=== PATIENT | male | born 1945 | race Caucasian/White ===

== ENCOUNTER 2017-02-14 13:13 | Outpatient (CLI) | payer OTHER | END 2017-02-14 13:14 | disposition home or self-care (01) | LOC: ULT 13:13 | PROVIDERS: ATTEND Orthopaedic Surgery | DX: I25.9 Chronic ischemic heart disease, unspecified (principal); I08.1 Rheumatic disorders of both mitral and tricuspid valves | CPT/HCPCS: 93306 ==

== ENCOUNTER 2017-04-26 12:14 | Inpatient (IN) | payer OTHER ==
[2017-04-26 12:49] LABS: #Lymphocytes 2.7 thou/uL (1.20-3.40); #Monocytes 0.5 thou/uL (0.11-0.59); %Basophils 0.5 % (0.0-1.0); %Eosinophils 0.3 % (0.0-10.0); %Lymphocytes 36.8 % (21.0-51.0); %Monocytes 7.2 % (0.0-10.0); %Neutrophils 55.2 % (42.0-75.0); Mean Corpuscular HGB CONC 33.3 g/dL (32.0-36.0); Mean Corpuscular Hemoglobin 33.2 pg (27.0-31.0); Mean Corpuscular Volume 99.8 fl (80.0-94.0); Mean Platelet Volume 8.2 fL (7.4-10.4); Platelet Count 142 thou/uL (130-400); RBC Distribution Width 13.5 % (11.5-14.5); White Blood Cell (WBC) Count 7.3 thou/uL (4.8-10.8)
[2017-04-26 13:04] LABS: ALT (SGPT) 160 U/L (8-55); AST (SGOT) 95 U/L (5-34); Albumin 3.8 g/dL (3.4-4.8); Alkaline Phosphatase 256 U/L (40-150); Anion Gap 21 mmol/L (10-20); BUN (Urea Nitrogen) 47 mg/dL (8.4-25.7); Calc. Creatinine Clearance 0 mL/min (70-130); Calcium 11.8 mg/dL (7.8-10.44); Carbon Dioxide 18 mmol/L (23-31); Chloride 101 mmol/L (98-107); Estimated GFR-MDRD 41; Glucose 474 mg/dL (83-110); Potassium 4.6 mmol/L (3.5-5.1); Protein, Total 7.8 g/dL (5.8-8.1); Sodium 135 mmol/L (136-145)
--- NOTE | 2017-04-26 14:10 | RAD ---
CHEST ONE VIEW: History: Cough. Comparison: 09-13-16 FINDINGS: Cardiac silhouette is magnified by projection. There is lobular prominence of the upper mediastinum w ith narrowing of the right side of the mid trachea. Ill-defined mass like infiltrate projects over th e right suprahilar level. There is calcification at the aortic knob. IMPRESSION: Right suprahilar mass with mediastinal adenopathy. Please consider pulmonary evaluation and eventual CT chest for better characterization. POS: [facility]
[2017-04-26 15:09] LABS: PTT 26.5 SEC (22.9-36.1); Prothrombin Time 13.6 SEC (12.0-14.7)
[2017-04-26 15:15] LABS: Bilirubin Negative (Negative); Blood, Urine Negative (Negative); Clarity CLOUDY (Clear); Glucose, Urine (Dipstick) 500 mg/dL (Negative); Leukocyte Small (Negative); Nitrite Positive (Negative); Protein, Urine (Dipstick) 30 mg/dL (Neg-Trace); Specific Gravity, Urine 1.026 (1.002-1.036); pH, Urine 5.5 (5.0-9.0)
[2017-04-26 15:19] LABS: Hyaline Casts/LPF 4-6 HYALINE CAST LPF (0-3 Hyaline); Pathc Cast-AUWi Flag 0.27 (0-2.49); RBC/HPF 0-3 HPF (0-3); Squamous Epithelial 0-3 HPF (0-3)
[2017-04-26 15:20] LABS: Yeast-AUWi Flag 140.1 (0-25.0)
[2017-04-26 15:22] LABS: CK (CPK) 133 U/L (30-200)
[2017-04-26 15:32] LABS: Bacteria/HPF 2+ HPF (None Seen); Yeast-All Forms None Seen HPF (None Seen)
[2017-04-26 15:35] LABS: Lipase 1510 U/L (8-78)
[2017-04-26] MEDS ORDERED: Piperacillin/Tazobactam 4.5 GM in Sodium Chloride 0.9% 100 ML IVPB ONE (16:00)
--- NOTE | 2017-04-26 16:11 | CT ---
CT HEAD NONCONTRAST 04/26/17 HISTORY: Altered mental status. COMPARISON: 09/21/16. FINDINGS: There is no evidence of acute intracranial hemorrhage or infarct. Mild diffuse cortical atrophy and c hronic ischemic changes are stable. There is no mass effect or shift of midline structures. Calcifica tion is present in the arterial structures at the brain base. IMPRESSION: 1. Chronic type findings are stable. No acute intracranial abnormalities are demonstrated on non contrast CT head. 2. Atherosclerosis. POS: [facility]
--- NOTE | 2017-04-26 16:23 | CT ---
CT CHEST WITHOUT CONTRAST: 04/26/17 HISTORY: Possible mass in the chest. COMPARISON: Chest radiograph same day. FINDINGS: Within the right upper lobe infiltrate into the mediastinum and causing a mass effect upon the right trachea is an ill-defined mass which is difficult to fully evaluate without intravenous contrast. It measures approximately 4.3 x 4.5 x 10 cm (trans x AP x CC). Thyroid is unremarkable. There is abnormal solid mass effect attenuation in the right upper lobe. This mass appears to extend to the anterior and posterior segments of the right upper lobe bronchi. There is also abnormal thicke sean of the peribronchial soft tissues of the right middle lobe with some volume loss. Overall the si ze of this mass may be greater than what is measured. This may actually be approximately 10 cm in the craniocaudad dimension. Small right effusion. Mild emphysematous changes. Dense coronary artery calcifications. There is a very heterogeneous appearance to the liver. Old left lateral 8th rib fracture. IMPRESSION: 1. Right upper lobe mass into the mediastinum measuring approximately 4.3 x 4.3 x 10 cm (trans x AP x CC). There is subsequent invasion to the right upper lobe anterior and posterior segmental bron chi as well as right middle lobe bronchus with postobstructive pneumonitis and possibly some lymphang itic spread of tumor. 2. Extensive heterogeneous appearance of the noncontrast enhanced liver for which a contrast enh anced study of the abdomen and pelvis is recommended. Metastatic disease is of concern. 3. The mediastinal mass is most amenable to bronchoscopic evaluation than it is for a percutaneo us biopsy. POS: [facility]
--- NOTE | 2017-04-26 17:11 | ULT ---
RIGHT UPPER QUADRANT SONOGRAM: 04/26/17 HISTORY: Right upper quadrant pain. Abnormal liver function tests. FINDINGS: gallbladder has a normal appearance without evidence of stones. Common duct is 0.3 cm diameter. Liver has a very heterogeneous echotexture, possibly related to multiple small hypoechoic masses. It is di ffusely enlarged. Measurements are unable to be calculated. No free fluid is visible. Small cyst is a ssociated with cortex of the right kidney. IMPRESSION: 1. Enlarged heterogeneous liver with the appearance of multiple small heterogeneous masses. Plea se consider nonemergent CT of the liver for better characterization, with and without IV contrast. 2. No evidence of gallstones or biliary obstruction. POS: [facility]
--- NOTE | 2017-04-26 18:19 | CT ---
CT OF ABDOMEN AND PELVIS PERFORMED WITHOUT CONTRAST ENHANCEMENT: 04/26/17 HISTORY: Altered mental status. Abnormal noted in abdomen on recent chest CT. No IV contrast was administered as the patient is reportedly allergic. Coronary artery calcifications are seen. Bibasilar atelectatic lung changes noted. The liver has a very heterogeneous echotexture which is felt to most likely represent diffuse liver m etastatic disease. The spleen, pancreas and gallbladder regions appear unremarkable. Right and left adrenal gland are normal in appearance. Right and left kidneys are normal in size. Nikolai cifications seen in both kidneys are felt to be combination of some renal calculi as well as vascular calcifications. No obstruction. Small hypodensity involving the upper pole of the right kidney is mo st likely a cyst. There is no significant periaortic or mesenteric lymphadenopathy. The aorta is ecta tic with some mild aneurysmal dilatation of the common iliac arteries. CT OF PELVIS PERFORMED WITH CONTRAST ENHANCEMENT: There is a moderate amount of stool present in the colon. There is minimal sigmoid diverticulosis. IMPRESSION: 1. Very heterogeneous appearance to the liver which is felt to represent diffuse metastatic dise ase. 2. Bibasilar atelectasis with right pleural effusion. POS: [facility]
[2017-04-26] MEDS ORDERED: Ondansetron HCl/PF 4 MG/2 ML Vial ONE (18:35)
[2017-04-26] MEDS ORDERED: Morphine 4 MG/ML VIAL ONE (18:35)
[2017-04-26] MEDS ORDERED: Fentanyl 100 MCG/2 ML VIAL ONE (18:39)
[2017-04-26 19:06] LABS: Lactic Acid 2.1 mmol/L (0.5-2.2)
[2017-04-26] MEDS ORDERED: Ondansetron ODT 4 MG TAB SL PRN (20:22)
[2017-04-26] MEDS ORDERED: Sodium Chloride 0.9% 1,000 ML IV SCH (20:22)
[2017-04-26] MEDS ORDERED: Acetaminophen 325 MG TAB PO PRN (20:22)
[2017-04-26] MEDS ORDERED: Ondansetron HCl/PF 4 MG/2 ML Vial IVP PRN ×2 (20:22→22:46)
[2017-04-26] MEDS ORDERED: Piperacillin/Tazobactam 4.5 GM in Sodium Chloride 0.9% 100 ML IVPB SCH (22:00)
[2017-04-26] MEDS ORDERED: HumaLOG 300 UNITS/3 ML VIAL SC PRN ×2 (22:46)
[2017-04-26] MEDS ORDERED: Acetaminophen 500 MG TAB PO PRN (22:46)
[2017-04-26] MEDS ORDERED: Ondansetron ODT 4 MG TAB PO PRN (22:46)
[2017-04-26] MEDS ORDERED: Dextrose 5% in Water 1,000 ML IV PRN (22:46)
[2017-04-26] MEDS ORDERED: Dextrose 50% Abboject 50 ML SYRINGE SLOW IVP PRN (22:46)
[2017-04-26] MEDS ORDERED: Senokot 8.6 MG TAB PO PRN (22:46)
[2017-04-26] MEDS ORDERED: VANCOMYCIN/ RENALLY ADJUST ANTIBIOTICS IVPB PRN (23:10)
[2017-04-26] MEDS: Piperacillin/Tazobactam 3.375 GM in Sodium Chloride 0.9% 100 ML IVPB SCH (23:28)
[2017-04-27] MEDS: Vancomycin HCl 1.5 GM in Sodium Chloride 0.9% 250 ML 300 ML IVPB SCH (00:07)
[2017-04-27] MEDS: Sodium Chloride 0.9% 1,000 ML IV SCH ×3 (00:08→21:44)
--- NOTE | 2017-04-27 03:43 | HP ---
DATE OF ADMISSION: 04/26/2017 PRIMARY CARE PHYSICIAN: Tri guerrero. CHIEF COMPLAINT: Confusion and generalized weakness. HISTORY OF PRESENT ILLNESS: This is a 72-year-old male who presents to [facility] Emergency Department with the patient's reporting increased generalized weakness for approximat eddi 1 week, worsening in the last 24 hours. The had reported decreased ambulation, general carlyle ise, changes in speech, and alertness. Patient does have a significant history of dementia and requi res assistance with activities of daily living. The had reported in the emergency room records, urinary incontinence in the last 24 hours. The patient also was reportedly falling to his knees wit hin the last 24 hours when attempting to use the restroom in his home. Patient's overall appetite ochoa s been diminished per family report. The patient denies some nausea without emesis. Patient is unsu re of any specific weight loss and it is unclear on why he is in the hospital. Patient denied any pr ominent fever, change to his medication regimen or exposure history. In the emergency room, patient underwent general evaluation including screening metabolic survey showing questionable acute kidney i njury as well as lactic acidosis, hypercalcemia, transaminitis, and elevated lipase of 1510. Patient was treated with intravenous normal saline after concern for sepsis picture with questionable urinar y source. Patient received IV Zosyn and fentanyl as well as Zofran. Patient also underwent CT imaging of the abdomen, pelvis, and chest showing an apparent metastatic pr ocess involving liver metastasis as well as lung mass. These were apparently new findings according to the emergency room records. Attempts were made in the emergency room [facility]; however, aurea domingo and family decided to stay in the [facility] and seek treatment and evaluation. PAST MEDICAL HISTORY: 1. Dementia. 2. Tobacco abuse. 3. Peripheral vascular disease. 4. Coronary artery disease, status post coronary artery bypass grafting x4 vessels. 5. Diabetes mellitus type 2, insulin requiring. 6. Osteoarthritis. 7. Chronic kidney disease. 8. Hypertension. 9. Depression. 10. Status post myocardial infarction. PAST SURGICAL HISTORY: 1. Status post coronary artery bypass grafting x4 vessels on 01/26/2015. 2. Status post left distal SFA to peroneal artery bypass using saphenous vein graft. 3. Status post right total knee arthroplasty. CURRENT MEDICATIONS: We will need to be confirmed with family members. Based on previous admission in 02/2017, 1. Aspirin 325 mg one tablet p.o. daily. 2. Lipitor 40 mg p.o. at bedtime. 3. Bupropion 75 mg p.o. daily. 4. BuSpar 10 mg 1 tab p.o. t.i.d. 5. Klonopin 0.5 mg 1 tab p.o. at bedtime. 6. Vitamin B12 of 1000 mcg p.o. daily. 7. Pepcid 20 mg p.o. b.i.d. 8. Folic acid 0.4 mg 1 tab p.o. daily. 9. Lasix 10 mg p.o. q.a.m. 10. Gabapentin 600 mg p.o. q.i.d. 11. Levemir 15 units subcutaneously b.i.d. 12. NovoLog insulin 5-10 units subcutaneously t.i.d. with meals. ALLERGIES: CODEINE and HYDROCODONE. FAMILY HISTORY: Father diagnosed with history of hypertension. Mother after diagnosed with CVA. SOCIAL HISTORY: Patient is , residing in [place], [place]. Smoking half a pack of cigarettes calderon ly. No alcohol or illicit drug use. REVIEW OF SYSTEMS: Unobtainable as patient with severe dementia. PHYSICAL EXAMINATION: VITAL SIGNS: Blood pressure 121/78, pulse 72, respiratory rate 18, temperature 98.8 degrees Fahrenhe it, O2 saturation is 97% on 2 liters per minute by nasal cannula. GENERAL APPEARANCE: This is a 72-year-old male, alert and oriented x1, pleasant, in no acu te distress. HEENT: Pupils are equal, round, and reactive to light and accommodation. Extraocular muscles are in tact. No scleral icterus, no conjunctival injection. Nares patent. OP is clear. Oral mucosa dry a ppearing. NECK: Supple, no cervical adenopathy, no thyromegaly, no carotid bruits, no JVD appreciated. Cervic al spine with full active and passive range of motion. No meningeal signs appreciated. CHEST: Diminished breath sounds in the bases bilaterally. CARDIOVASCULAR: S1, S2 with distant heart sounds. ABDOMEN: Flat, soft with mild tenderness to palpation in the midepigastric region. Bowel sounds are positive in all four quadrants. There is no hepatosplenomegaly, no abdominal bruits, no rebound or guarding appreciated. EXTREMITIES: Warm and dry with fair turgor. No clubbing, cyanosis, or asymmetric edema appreciated. Pulses palpable distally at the dorsalis pedis, posterior tibial, and popliteal arteries bilaterall y. Capillary refill less than 2 seconds. NEUROLOGIC: Cranial nerves II-XII are grossly intact. Patient is not alert and oriented x1 to perso n. No other gross focal deficits appreciated. PERTINENT LABORATORY AND X-RAY FINDINGS: Sodium 135, potassium is 4.6, chloride 101, CO2 of 18, BUN 47, creatinine 1.65 with estimated GFR of 41, glucose 474. Lactic acid level 6.9, calcium 11.8, AST 95, ALT of 160, alkaline phosphatase 256, troponin I negative x1. BNP 75, total CK 133, albumin 3.8, lipase 1510. CBC showed a white blood cell count of 7.3, hemoglobin 13, hematocrit 39, MCV of 100, platelet count 142 with normal differential. PT 13.6, INR 1.0, PTT 26.5. Urinalysis positive for gl ucose, nitrites, small leukocyte esterase with 4-6 wbc's per high powered field. Influenza A and B a ntigen from 04/26/2017, negative. Portable chest x-ray dated 04/26/2017, showed right suprahilar mas s with mediastinal adenopathy. CT of the chest dated 04/26/2017, showed right upper lobe and mediast inal involvement mass 4.3 x 4.3 x 10 cm. Invasion of the right upper lobe anterior, posterior segmen ts as well as right middle lobe bronchi. CT of the brain without contrast dated 04/18/2017, showed c hronic changes. No acute process identified. EKG dated 04/26/2017 by my interpretation shows sinus tachycardia with heart rates in the low 100s. Attenuated R waves noted in the precordial leads. Nor mal axis. No acute ST-T wave changes appreciated. ASSESSMENT AND PLAN: 1. Sepsis, questionable source suspected urinary tract. Patient will be admitted to the intermediat e care unit. We will continue broad spectrum IV antibiotic therapy after patient received Zosyn 4.5 grams x1 dose in the emergency room. We will continue to treat sepsis with unknown source including vancomycin and Zosyn. Await final blood and urine culture results. Continue intravenous fluids with normal saline at 100 mL per hour. 2. Lactic acidosis. Suspect infectious process underlying elevated values. We will continue empiri c IV antibiotic therapy as outlined previously. 3. Question of metastatic process with hepatic and lung involvement. We will consult Pulmonology Se qianice for evaluation and consideration for bronchoscopic biopsy. 4. Question of postobstructive pneumonitis secondary to lung mass. We will continue vancomycin and Zosyn as stated previously. Continue general pulmonary supportive measures. Pulmonology consult [facility]. 5. Acute kidney injury on chronic kidney disease, stage 2-3. Avoid nephrotoxic agents and contrast media. Continue intravenous normal saline 100 mL per hour. Repeat creatinine in the a.m. 6. Diabetes mellitus, type 2, labile. Insulin sliding scale for reflexive coverage. ADA diet. Acc u-Cheks a.c. and at bedtime. 7. Transaminitis with questionable acute pancreatitis. Symptomatically, no specific evidence of an acute exacerbation. Repeat lipase level in the a.m. 8. Advanced dementia. We will continue general supportive measures. Reorientation techniques. 9. Prophylaxis. Sequential compression devices while in bed. Pepcid 20 mg p.o. b.i.d. PT evaluati on pending. 10. Code status is FULL. Surrogate medical decision maker is patient's spouse.
[2017-04-27] MEDS: Piperacillin/Tazobactam 3.375 GM in Sodium Chloride 0.9% 100 ML IVPB SCH ×4 (04:31→22:41)
[2017-04-27 04:52] LABS: Band 5 % (5-11); Eosinophils 1 % (0-10); Hemoglobin 10.7 g/dL (14.0-18.0); Lymphocytes 28 % (21-51); MDiff Complete? YES; Mean Corpuscular HGB CONC 33.2 g/dL (32.0-36.0); Mean Corpuscular Hemoglobin 33.2 pg (27.0-31.0); Mean Platelet Volume 7.9 fL (7.4-10.4); Monocytes 6 % (0-10); Neutrophil 60 % (42-75); PLT Morphology Comment Appears Decreased; Platelet Count 103 thou/uL (130-400); RBC Distribution Width 13.5 % (11.5-14.5); Red Blood Cell (RBC) Count 3.23 mill/uL (4.70-6.10); White Blood Cell (WBC) Count 4.3 thou/uL (4.8-10.8)
[2017-04-27 04:57] LABS: ALT (SGPT) 120 U/L (8-55); AST (SGOT) 72 U/L (5-34); Albumin 3.2 g/dL (3.4-4.8); Alkaline Phosphatase 199 U/L (40-150); Anion Gap 14 mmol/L (10-20); BUN (Urea Nitrogen) 39 mg/dL (8.4-25.7); Bilirubin, Total 0.6 mg/dL (0.2-1.2); Calc. Creatinine Clearance 57 mL/min (70-130); Calcium 10.4 mg/dL (7.8-10.44); Carbon Dioxide 23 mmol/L (23-31); Chloride 109 mmol/L (98-107); Estimated GFR-MDRD 60; Glucose 219 mg/dL (83-110); Lipase 399 U/L (8-78); Potassium 3.9 mmol/L (3.5-5.1); Protein, Total 6.2 g/dL (5.8-8.1); Sodium 142 mmol/L (136-145)
[2017-04-27] MEDS ORDERED: Diltiazem 125 MG in Sodium Chloride 0.9% 100 ML IVPB SCH ×2 (08:15→11:17)
[2017-04-27] MEDS: Morphine 2 MG/ML SYRINGE SLOW IVP PRN (08:51)
[2017-04-27] MEDS: Docusate 100 MG CAP PO SCH ×2 (08:53→21:36)
[2017-04-27] MEDS: Aspirin 325 MG TAB PO SCH (08:53)
[2017-04-27] MEDS: Famotidine 20 MG TAB PO SCH (08:53)
[2017-04-27] MEDS: Gabapentin 300 MG CAP PO SCH ×4 (08:53→21:36)
[2017-04-27] MEDS: busPIRone HCl 10 MG TAB PO SCH ×3 (08:54→21:36)
[2017-04-27] MEDS ORDERED: Famotidine 20 MG TAB PO SCH (09:00)
[2017-04-27] MEDS ORDERED: FLU VACC TS2017-18 (>65YR) 0.5 ML SYRINGE IM ONE (09:00)
[2017-04-27] MEDS: Insulin Detemir 100 UNITS/ML 15 UNITS in Pre-Filled Syringe 1 EACH SC SCH ×2 (10:08→21:47)
[2017-04-27] MEDS ORDERED: Amiodarone 200 MG TAB PO SCH (11:45)
[2017-04-27] MEDS ORDERED: Enoxaparin Sodium 80 MG/0.8 ML SYRINGE SC SCH (11:45)
--- NOTE | 2017-04-27 12:19 | EKG ---
Test Reason : Blood Pressure : / mmHG Vent. Rate : 103 BPM Atrial Rate : 103 BPM P-R Int : 166 ms QRS Dur : 090 ms QT Int : 322 ms P-R-T Axes : 056 033 203 degrees QTc Int : 421 ms Sinus tachycardia with Premature atrial complexes Possible Inferior infarct , age undetermined Marked ST abnormality, possible lateral subendocardial injury Abnormal ECG Confirmed by VY POLANCO ([id number]), technical editor BALTAZAR AMOS ([id number]) on 04/27/2017 12:19:07 PM Referred By: Confirmed By:VY POLANCO
--- NOTE | 2017-04-27 12:23 | CON ---
DATE OF CONSULTATION: 04/27/2017 REASON FOR CONSULTATION: Atrial fibrillation with a rapid ventricular response. HISTORY OF PRESENT ILLNESS: Ms. Salazar is a 72-year-old gentleman. He was seen most recently from a cardiology standpoint by Dr. Thompson. The patient has a history of coronary bypass grafting. He initially presented with an acute infarcti on and had percutaneous intervention and then later underwent bypass surgery by Dr. Bashir. The patient had bypass grafting in 12/2014. At that time, he had internal mammary to the diseased LA D, saphenous vein graft to the diagonal, saphenous vein graft to distal obtuse marginal and main righ t coronary bypass x4. The patient did require some surgery for removal of hardware at a later time b christina Willis that was done on 03/06/2017, wires were removed at that time. The patient also had vascular surgery done on 05/19/[address] Willis. The patient was admitted on this occasion with weakness and increasing disorientation and apparently there is some baseline history of dementia, but he had markedly worsened, came in to the emergency ro om, he is being evaluated later this morning with atrial fibrillation with a rapid rate. A CT scan of the abdomen and pelvis and chest show apparently metastatic process, liver metastasis an d lung mass. PAST MEDICAL HISTORY: 1. History of dementia. 2. Peripheral vascular disease. 3. Coronary artery disease. 4. Chronic kidney disease. 5. Hypertension. 6. Depression. SURGICAL HISTORY: As outlined above. MEDICATIONS: Prior to admission, 1. Aspirin. 2. BuSpar. 3. Pepcid 4. Lasix. 5. Insulin. Previously he has been on Coumadin for unclear reasons? pulmonary embolism, but unknown; also was on Plavix, but that was also discontinued. REVIEW OF SYSTEMS: Really not reliable as this gentleman has dementia. The states that overall he has not reported any change in vision. No change in hearing. PULMONARY: No cough or wheezing. CARDIAC: No chest pain. GASTROINTESTINAL: No nausea, vomiting, or diarrhea. SKIN: No rashes. NEUROLOGIC: No unilateral weakness or numbness. PHYSICAL EXAMINATION: GENERAL: On examination, this is a pleasant elderly gentleman looks older than his chronologic age o f 72. VITAL SIGNS: Blood pressure 100/60, pulse 110 to 130 and irregular. EYES: Sclerae nonicteric. Mouth mucous membranes moist. NECK: Supple. No lymphadenopathy. LUNGS: Clear. CARDIAC: Irregularly irregular. No murmur, rub or gallop. ABDOMEN: Soft and nontender. No hepatosplenomegaly. EXTREMITIES: Warm and dry. No clubbing, cyanosis or edema. Popliteal pulses are palpable. I do no t feel pedal pulses. PERTINENT LABORATORY: GFR 60, lactic acid is 6.9. EKG: Atrial fibrillation with a rapid rate. ASSESSMENT: 1. Previous myocardial infarction. 2. Previous bypass surgery. 3. Echocardiogram done last month showed ejection fraction of 35% to 40%. 4. Paroxysmal atrial fibrillation with a rapid rate. I suspect he has been doing this at home. Elliot brown states that at times he is extremely difficult to mobilize and very weak, I suspect he may be havin g fibrillation during that time. PLAN: 1. He is on intravenous diltiazem. 2. Add oral amiodarone. 3. Subcutaneous Lovenox, consideration for Xarelto when he goes home.
--- NOTE | 2017-04-27 12:58 | PDOC.PN ---
- Subjective Encounter Start Date: 04/27/17 Encounter Start Time: 08:40 Pt seen for followup re: penny shay with RVR. Denies chest pain. feels weak. No nausea or vomiting. - Objective Resuscitation Status: Resuscitation Status FULL:Full Resuscitation MAR Reviewed: Yes Vital Signs & Weight: Vital Signs (12 hours) Temp Pulse Resp BP Pulse Ox 04/27/17 11:00 97.7 F 111 H 18 90/72 96 04/27/17 07:15 98.2 F 60 18 153/71 H 94 L 04/27/17 03:55 99.0 F 66 20 104/65 97 Weight Weight 156 lb 6.4 oz I&O: 04/26/17 04/27/17 04/28/17 06:59 06:59 06:59 Intake Total 1620 Balance 1620 Result Diagrams: 04/27/17 04:25 04/27/17 04:25 Additional Labs: Accuchecks 04/27/17 04/27/17 04/26/17 10:08 05:35 23:30 POC Glucose 174 H 225 H 321 H 04/26/17 19:01 POC Glucose 344 H EKG Reviewed by me: Yes (Tele: penny shay with RVR) Phys Exam - Physical Examination Constitutional: NAD HEENT: PERRLA, moist MMs, sclera anicteric, oral pharynx no lesions Neck: no nodes, no JVD, supple, full ROM Respiratory: no wheezing, no rales, no rhonchi, clear to auscultation bilateral Cardiovascular: no rub, irregular Gastrointestinal: soft, non-tender, no distention, positive bowel sounds Neurological: moves all 4 limbs Psychiatric: normal affect Skin: no rash Dx/Plan (1) Atrial fibrillation with RVR Code(s): I48.91 - UNSPECIFIED ATRIAL FIBRILLATION Status: Acute (2) Lung mass Code(s): R91.8 - OTHER NONSPECIFIC ABNORMAL FINDING OF LUNG FIELD Status: Acute (3) Liver metastases Code(s): C78.7 - SECONDARY MALIG NEOPLASM OF LIVER AND INTRAHEPATIC BILE DUCT Status: Acute (4) Coronary artery disease Code(s): I25.10 - ATHSCL HEART DISEASE OF [place] CORONARY ARTERY W/O ANG PCTRS Status: Chronic Qualifiers: Associated angina: with unstable angina Comment: s/p CABG (5) Diabetes type 2, uncontrolled Code(s): E11.65 - TYPE 2 DIABETES MELLITUS WITH HYPERGLYCEMIA Status: Chronic (6) Dyslipidemia Code(s): E78.5 - HYPERLIPIDEMIA, UNSPECIFIED Status: Chronic (7) Hypertension Code(s): I10 - ESSENTIAL (PRIMARY) HYPERTENSION Status: Chronic Qualifiers: Hypertension type: essential hypertension Qualified Code(s): I10 - Essential (primary) hypertension (8) Tobacco abuse Code(s): Z72.0 - TOBACCO USE Status: Chronic - Plan continue antibiotics, out of bed/ambulate * . Start cardizem drip, consult cardiology. Await PCCM input re: lung mass with liver mets. Start nicotine replacement therapy. Continue accuchecks, insulin sliding scale. Monitor vital signs, titrate antihypertensives as needed. Continue IV antibiotics as below. Review of Systems - Review of Systems Constitutional: weakness. negative: fever, chills, sweats, malaise Respiratory: negative: Cough, Dry, Shortness of Breath, Hemoptysis, SOB with Excertion, Pleuritic Pain, Sputum, Wheezing Cardiovascular: other. negative: chest pain, palpitations, orthopnea, paroxysmal nocturnal dyspnea, edema, light headedness Gastrointestinal: Other. negative: Nausea, Vomiting, Abdominal Pain, Diarrhea, Constipation, Melena, Hematochezia Genitourinary: negative: Dysuria, Frequency, Incontinence, Hematuria, Retention Neurological: Weakness - Medications/Allergies Allergies/Adverse Reactions: Allergies Allergy/AdvReac Type Severity Reaction Status Date / Time codeine Allergy Mild Rash Verified 03/05/17 08:23 [From Tylenol-Codeine #3] hydrocodone Allergy confused, Verified 03/05/17 08:25 disoriented Medications: Current Medications Acetaminophen (Tylenol) 1,000 mg PO Q6H PRN PRN Reason: Headache/Fever or Mild Pain Amiodarone HCl (Cordarone) 400 mg PO BID [facility] Amiodarone HCl (Cordarone) 400 mg PO NOW [facility] Stop: 04/27/17 13:45 Last Admin: 04/27/17 12:05 Dose: 400 mg Aspirin (Aspirin) 325 mg PO DAILY [facility] Last Admin: 04/27/17 08:53 Dose: 325 mg Buspirone HCl (Buspar) 10 mg PO TID [facility] Last Admin: 04/27/17 08:54 Dose: 10 mg Clonazepam (Klonopin) 0.5 mg PO HS [facility] Dextrose/Water (Dextrose 50%) 25 gm SLOW IVP PRN PRN PRN Reason: Hypoglycemia Docusate Sodium (Colace) 100 mg PO BID [facility] Last Admin: 04/27/17 08:53 Dose: 100 mg Enoxaparin Sodium (Lovenox) 70 mg SC 0900,2100 [facility] Enoxaparin Sodium (Lovenox) 70 mg SC NOW [facility] Stop: 04/27/17 13:45 Last Admin: 04/27/17 12:04 Dose: 70 mg Famotidine (Pepcid) 20 mg PO DAILY [facility] Last Admin: 04/27/17 08:53 Dose: 20 mg Gabapentin (Neurontin) 600 mg PO QID [facility] Last Admin: 04/27/17 12:05 Dose: 600 mg Glucagon (Glucagon) 1 mg IM PRN PRN PRN Reason: Hypoglycemia Dextrose/Water (D5w) 1,000 mls @ 0 mls/hr IV .Q0M PRN; As Directed PRN Reason: Hypoglycemia Sodium Chloride (Normal Saline 0.9%) 1,000 mls @ 100 mls/hr IV .Q10H [facility] Last Admin: 04/27/17 12:09 Dose: 1,000 mls Piperacillin Sod/Tazobactam (Sod 3.375 gm/ Sodium Chloride) 100 mls @ 200 mls/ hr IVPB 0500,1100,1700,2300 [facility] Last Admin: 04/27/17 11:08 Dose: 100 mls Vancomycin HCl 1.5 gm/ Sodium (Chloride) 300 mls @ 150 mls/hr IVPB 2359 [facility] Last Admin: 04/27/17 00:07 Dose: 300 mls Insulin Detemir 15 units/ (Miscellaneous Medication) 0.15 mls @ 0 mls/hr SC BID [facility] Last Admin: 04/27/17 10:08 Dose: 0.15 mls Diltiazem HCl 125 mg/ Sodium (Chloride) 125 mls @ 8 mls/hr IVPB INF NARCISO; 8 MG/ HR PRN Reason: Protocol Insulin Human Lispro (Humalog) 0 units SC .MODERATE SLIDING SC PRN PRN Reason: Moderate Correctional Scale Last Admin: 04/27/17 05:48 Dose: 4 unit Insulin Human Lispro (Humalog) 0 units SC .BEDTIME SLIDING SC PRN PRN Reason: Bedtime Correctional Scale Last Admin: 04/27/17 00:08 Dose: 4 unit Miscellaneous Medication (Pharmacy To Dose) 1 each IVPB PRN PRN PRN Reason: Pharmacy to dose Morphine Sulfate (Morphine) 2 mg SLOW IVP Q4H PRN PRN Reason: Pain Last Admin: 04/27/17 08:51 Dose: 2 mg Ondansetron HCl (Zofran Odt) 4 mg PO Q6H PRN PRN Reason: Nausea/Vomiting Ondansetron HCl (Zofran) 4 mg IVP Q6H PRN PRN Reason: Nausea/Vomiting Senna (Senokot) 2 tab PO HSPRN PRN PRN Reason: Constipation Sodium Chloride (Flush - Normal Saline) 10 ml IVF Q12HR NARCISO Last Admin: 04/27/17 08:54 Dose: 10 ml Sodium Chloride (Flush - Normal Saline) 10 ml IVF PRN PRN PRN Reason: Saline Flush
[2017-04-27] MEDS: Nicotine 14 MG PATCH TD SCH (13:53)
[2017-04-27] MEDS ORDERED: Sodium Chloride 0.9% 1,000 ML IV SCH (14:45)
[2017-04-27] MEDS ORDERED: Digoxin 0.5 MG/2 ML AMP SLOW IVP SCH (14:45)
--- NOTE | 2017-04-27 15:46 | CON ---
DATE OF CONSULTATION: 04/27/2017 CONSULTING PHYSICIAN: Hospitalist group. REASON FOR CONSULTATION: Lung mass. HISTORY OF PRESENT ILLNESS: The history is obtained largely from reviewing records and the chart. T he patient is not oriented and although he can talk, he cannot give an accurate history. He is a 72-year-old male who was brought to the emergency department last night with generalized weak ness that had been present for about 1 week, but had been worse over the 24 hours prior to admission. This was characterized by decreased ambulation, fatigue, changes in his speech. He does have a his tory of dementia. He was found to be in atrial fibrillation with rapid ventricular response. He und erwent CT imaging which showed a superior mediastinal/right peritracheal mass which may involve the l chet. He also has extensive liver metastasis. PAST MEDICAL HISTORY: 1. Dementia. 2. Tobacco abuse. 3. Peripheral vascular disease. 4. Coronary artery disease. 5. Diabetes mellitus type 2. 6. Osteoarthritis. 7. Chronic kidney disease. 8. Hypertension. 9. Depression. PAST SURGICAL HISTORY: 1. Coronary artery bypass grafting surgery. 2. Left distal SFA to peroneal artery bypass. 3. Right total knee arthroplasty. MEDICATIONS PRIOR TO ADMISSION: Aspirin 325 mg daily, Lipitor 40 mg daily, bupropion 75 mg daily, Bu Spar 10 mg t.i.d., Klonopin 0.5 mg at bedtime, vitamin B12 at 1000 mg daily, Pepcid 20 mg b.i.d., fol ate 0.4 mg daily, Lasix 10 mg every morning, gabapentin 600 mg 4 times daily, Levemir 15 units subcut aneously twice daily, and NovoLog insulin sliding scale with meals. ALLERGIES: CODEINE and HYDROCODONE. FAMILY MEDICAL HISTORY: Remarkable for hypertension. SOCIAL HISTORY: , smokes about half pack per day. Does not use drugs or consume alcohol. REVIEW OF SYSTEMS: Twelve point review of systems cannot be obtained as the patient is demented and cannot answer questions reliably. PHYSICAL EXAMINATION: VITAL SIGNS: Temperature 97.7, pulse 111-140, respiratory rate 18, O2 sat 96% on 2 liters, blood pre ssure 90/72. HEENT: Unremarkable. Sclerae are anicteric. Oropharynx is clear. NECK: No adenopathy, no JVD, no palpable masses. CARDIOVASCULAR: S1 and S2, irregularly irregular, and tachycardic. No murmur. LUNGS: Clear to auscultation bilaterally without wheezing. ABDOMEN: Soft and nontender. Liver is somewhat enlarged. EXTREMITIES: No clubbing, cyanosis, or edema. NEUROLOGIC: Able to move all 4 extremities, but is not oriented to time or place. LABORATORY DATA: These tests were individually reviewed by myself and include white blood cell count 4.3, hematocrit 32.3, platelet count 103. INR 1.0. Sodium 142, potassium 3.9, chloride 109, CO2 of 23, BUN 39, creatinine 1.2, glucose 219, AST 72, ALT 120. I reviewed the CT of the chest personally as well as the chest x-ray. He has a large right upper lobe mass which extends to the mediastinum m easuring 4.3 x 4.[address] of the abdomen demonstrated probable metastatic disease in the li naeem with small right pleural effusion. ASSESSMENT: 1. Metastatic cancer with poor performance status. 2. Atrial fibrillation with rapid ventricular response. 3. Severe dementia. RECOMMENDATIONS: 1. At this time, the patient is not a candidate for workup of the lung mass secondary to his cardiac issues and dementia. I would advise talking things over with the family carefully as I do not think he would be a candidate for any therapy even if this was biopsied. I would support hospice type [facility] sures instead of an aggressive workup. 2. He is currently on antibiotics - I am not sure we were dealing with any type of pneumonitis proce ss. 3. I will follow the patient with you, but again I do not think there is much we can do in terms of further workup unless his status improves. Family was not at bedside. I will try to discuss this wi th him. Fifty minutes were spent at the bedside and the patient's floor unit reviewing records, examining the patient.
[2017-04-27] MEDS: traMADol HCl 50 MG TAB PO SCH ×2 (17:09→21:38)
[2017-04-27] MEDS: Enoxaparin Sodium 80 MG/0.8 ML SYRINGE SC SCH (21:35)
[2017-04-27] MEDS: clonazePAM 0.5 MG TAB PO SCH (21:35)
[2017-04-27] MEDS: Amiodarone 200 MG TAB PO SCH (21:37)
[2017-04-28] MEDS: Vancomycin HCl 1.5 GM in Sodium Chloride 0.9% 250 ML 300 ML IVPB SCH (00:25)
[2017-04-28] MEDS: Piperacillin/Tazobactam 3.375 GM in Sodium Chloride 0.9% 100 ML IVPB SCH ×4 (04:34→22:04)
[2017-04-28] MEDS: traMADol HCl 50 MG TAB PO SCH ×4 (08:52→21:47)
[2017-04-28] MEDS: Aspirin 325 MG TAB PO SCH (08:52)
[2017-04-28] MEDS: Enoxaparin Sodium 80 MG/0.8 ML SYRINGE SC SCH ×2 (08:52→21:49)
[2017-04-28] MEDS: Amiodarone 200 MG TAB PO SCH ×2 (08:53→21:47)
[2017-04-28] MEDS: Insulin Detemir 100 UNITS/ML 15 UNITS in Pre-Filled Syringe 1 EACH SC SCH ×2 (08:53→21:50)
[2017-04-28] MEDS: Docusate 100 MG CAP PO SCH ×2 (08:53→21:48)
[2017-04-28] MEDS: Gabapentin 300 MG CAP PO SCH ×4 (08:53→21:47)
[2017-04-28] MEDS: busPIRone HCl 10 MG TAB PO SCH ×3 (08:53→21:47)
[2017-04-28] MEDS: Famotidine 20 MG TAB PO SCH (08:53)
--- NOTE | 2017-04-28 09:18 | PRG ---
DATE OF SERVICE: 04/28/2017 SUBJECTIVE: Mr. Salazar is doing better today. He is in normal sinus rhythm. PHYSICAL EXAMINATION: VITAL SIGNS: His blood pressure is 122/66, pulse 64 and regular. LUNGS: Clear. CARDIAC: Normal S1, normal S2. ASSESSMENT: 1. Paroxysmal atrial fibrillation, now in sinus rhythm. 2. Dementia. 3. The patient may also have a malignancy as is outlined in the chart. PLAN: He is on amiodarone 400 mg twice a day. He is off the diltiazem.
[2017-04-28] MEDS: Sodium Chloride 0.9% 1,000 ML IV SCH (10:37)
--- NOTE | 2017-04-28 11:44 | PRG ---
DATE OF SERVICE: 04/28/2017 SUBJECTIVE: The patient remains confused, there has been no acute changes overnight, OBJECTIVE: VITAL SIGNS: Temperature 97.8, pulse 64, respirations 18, O2 sat 96% on 2 liters. HEENT: Unremarkable. NECK: No JVD. CARDIAC: S1, S2 irregularly irregular at times. ABDOMEN: Soft, nontender. EXTREMITIES: No edema. LABORATORY DATA: None was obtained today. ASSESSMENT: 1. Large mediastinal mass with metastasis to liver - likely lung cancer which is stage IV. 2. Severe dementia. 3. Atrial fibrillation. PLAN: The patient is unable to make decisions for himself. I spoke at length with his and I sh owed her the scans. I told her that this was questionably metastatic cancer. She said that he made her promise years ago that she would not make him undergo any chemotherapy if he has metastatic cance r. Based on that, I have recommended that we not proceed with any type of biopsy evaluation. I told her that I thought he would have been a poor candidate for chemotherapy, even under the best circums tances. This patient should be moved out to the medical floor. He can continue antibiotics, but I t hink the main need at this time is palliative care.
--- NOTE | 2017-04-28 13:11 | PDOC.PN ---
- Subjective Encounter Start Date: 04/28/17 Encounter Start Time: 09:40 Pt seen for followup re: lung mass. Answering questions, but not reliably. Unable to complete ROS. - Objective Resuscitation Status: Resuscitation Status DNR:Do Not Resuscitate MAR Reviewed: Yes Vital Signs & Weight: Vital Signs (12 hours) Temp Pulse Resp BP Pulse Ox 04/28/17 11:57 99.0 F 62 18 128/65 98 04/28/17 08:00 97.8 F 64 18 96 04/28/17 07:00 97.8 F 64 18 122/66 93 L 04/28/17 03:30 98.4 F 61 12 117/62 97 Weight Weight 161 lb 12.8 oz I&O: 04/27/17 04/28/17 04/29/17 06:59 06:59 06:59 Intake Total 1620 3171 Output Total 1300 Balance 1620 1871 Result Diagrams: 04/27/17 04:25 04/27/17 04:25 Additional Labs: Accuchecks 04/28/17 04/27/17 04/27/17 05:41 20:25 16:24 POC Glucose 72 103 90 EKG Reviewed by me: Yes (Tele: NSR) Phys Exam - Physical Examination Constitutional: NAD HEENT: moist MMs Neck: supple Respiratory: clear to auscultation bilateral Cardiovascular: RRR Gastrointestinal: soft Neurological: moves all 4 limbs Psychiatric: normal affect Skin: no rash Dx/Plan (1) Lung mass Code(s): R91.8 - OTHER NONSPECIFIC ABNORMAL FINDING OF LUNG FIELD Status: Acute (2) Liver metastases Code(s): C78.7 - SECONDARY MALIG NEOPLASM OF LIVER AND INTRAHEPATIC BILE DUCT Status: Acute (3) Coronary artery disease Code(s): I25.10 - ATHSCL HEART DISEASE OF [place] CORONARY ARTERY W/O ANG PCTRS Status: Chronic Qualifiers: Associated angina: with unstable angina Comment: s/p CABG (4) Diabetes type 2, uncontrolled Code(s): E11.65 - TYPE 2 DIABETES MELLITUS WITH HYPERGLYCEMIA Status: Chronic (5) Dyslipidemia Code(s): E78.5 - HYPERLIPIDEMIA, UNSPECIFIED Status: Chronic (6) Hypertension Code(s): I10 - ESSENTIAL (PRIMARY) HYPERTENSION Status: Chronic Qualifiers: Hypertension type: essential hypertension Qualified Code(s): I10 - Essential (primary) hypertension (7) Tobacco abuse Code(s): Z72.0 - TOBACCO USE Status: Chronic (8) Atrial fibrillation with RVR Code(s): I48.91 - UNSPECIFIED ATRIAL FIBRILLATION Status: Resolved - Plan * . Had a lengthy discussion with by bedside, updated her. Palliative care service consulted. Appreciate PCCM input. Continue accuchecks, insulin sliding scale. Titrate antihypertensives as needed. prognosis poor Review of Systems - Medications/Allergies Allergies/Adverse Reactions: Allergies Allergy/AdvReac Type Severity Reaction Status Date / Time codeine Allergy Mild Rash Verified 03/05/17 08:23 [From Tylenol-Codeine #3] hydrocodone Allergy confused, Verified 03/05/17 08:25 disoriented Medications: Current Medications Acetaminophen (Tylenol) 1,000 mg PO Q6H PRN PRN Reason: Headache/Fever or Mild Pain Amiodarone HCl (Cordarone) 400 mg PO BID [facility] Last Admin: 04/28/17 08:53 Dose: 400 mg Aspirin (Aspirin) 325 mg PO DAILY [facility] Last Admin: 04/28/17 08:52 Dose: 325 mg Buspirone HCl (Buspar) 10 mg PO TID [facility] Last Admin: 04/28/17 08:53 Dose: 10 mg Clonazepam (Klonopin) 0.5 mg PO HS [facility] Last Admin: 04/27/17 21:35 Dose: 0.5 mg Dextrose/Water (Dextrose 50%) 25 gm SLOW IVP PRN PRN PRN Reason: Hypoglycemia Docusate Sodium (Colace) 100 mg PO BID [facility] Last Admin: 04/28/17 08:53 Dose: 100 mg Enoxaparin Sodium (Lovenox) 70 mg SC 0900,2100 [facility] Last Admin: 04/28/17 08:52 Dose: 70 mg Famotidine (Pepcid) 20 mg PO DAILY [facility] Last Admin: 04/28/17 08:53 Dose: 20 mg Gabapentin (Neurontin) 600 mg PO QID [facility] Last Admin: 04/28/17 08:53 Dose: 600 mg Glucagon (Glucagon) 1 mg IM PRN PRN PRN Reason: Hypoglycemia Dextrose/Water (D5w) 1,000 mls @ 0 mls/hr IV .Q0M PRN; As Directed PRN Reason: Hypoglycemia Sodium Chloride (Normal Saline 0.9%) 1,000 mls @ 100 mls/hr IV .Q10H [facility] Last Admin: 04/28/17 10:37 Dose: 1,000 mls Piperacillin Sod/Tazobactam (Sod 3.375 gm/ Sodium Chloride) 100 mls @ 200 mls/ hr IVPB 0500,1100,1700,2300 [facility] Last Admin: 04/28/17 10:37 Dose: 100 mls Vancomycin HCl 1.5 gm/ Sodium (Chloride) 300 mls @ 150 mls/hr IVPB 2359 [facility] Last Admin: 04/28/17 00:25 Dose: 300 mls Insulin Detemir 15 units/ (Miscellaneous Medication) 0.15 mls @ 0 mls/hr SC BID [facility] Last Admin: 04/28/17 08:53 Dose: Not Given Insulin Human Lispro (Humalog) 0 units SC .MODERATE SLIDING SC PRN PRN Reason: Moderate Correctional Scale Last Admin: 04/27/17 05:48 Dose: 4 unit Insulin Human Lispro (Humalog) 0 units SC .BEDTIME SLIDING SC PRN PRN Reason: Bedtime Correctional Scale Last Admin: 04/27/17 00:08 Dose: 4 unit Miscellaneous Medication (Pharmacy To Dose) 1 each IVPB PRN PRN PRN Reason: Pharmacy to dose Morphine Sulfate (Morphine) 2 mg SLOW IVP Q4H PRN PRN Reason: Pain Last Admin: 04/27/17 08:51 Dose: 2 mg Nicotine (Nicoderm Patch) 14 mg TD Q24HR [facility] Last Admin: 04/27/17 13:53 Dose: Not Given Ondansetron HCl (Zofran Odt) 4 mg PO Q6H PRN PRN Reason: Nausea/Vomiting Ondansetron HCl (Zofran) 4 mg IVP Q6H PRN PRN Reason: Nausea/Vomiting Senna (Senokot) 2 tab PO HSPRN PRN PRN Reason: Constipation Sodium Chloride (Flush - Normal Saline) 10 ml IVF Q12HR [facility] Last Admin: 04/28/17 08:53 Dose: Not Given Sodium Chloride (Flush - Normal Saline) 10 ml IVF PRN PRN PRN Reason: Saline Flush Tramadol HCl (Ultram) 25 mg PO QID [facility] Last Admin: 04/28/17 08:52 Dose: 25 mg
[2017-04-28] MEDS: Nicotine 14 MG PATCH TD SCH (14:22)
[2017-04-28] MEDS: clonazePAM 0.5 MG TAB PO SCH (21:47)
[2017-04-29] MEDS: Vancomycin HCl 1.5 GM in Sodium Chloride 0.9% 250 ML 300 ML IVPB SCH (00:30)
[2017-04-29] MEDS: Vancomycin HCl 1 GM in Premix Bag 1 BAG IVPB SCH ×2 (01:01→12:22)
[2017-04-29] MEDS: Piperacillin/Tazobactam 3.375 GM in Sodium Chloride 0.9% 100 ML IVPB SCH ×4 (04:34→23:02)
[2017-04-29] MEDS: Sodium Chloride 0.9% 1,000 ML IV SCH ×2 (04:36→16:47)
[2017-04-29] MEDS: busPIRone HCl 10 MG TAB PO SCH ×3 (09:13→21:27)
[2017-04-29] MEDS: Docusate 100 MG CAP PO SCH ×2 (09:13→21:27)
[2017-04-29] MEDS: Gabapentin 300 MG CAP PO SCH ×4 (09:13→21:26)
[2017-04-29] MEDS: traMADol HCl 50 MG TAB PO SCH ×4 (09:13→21:27)
[2017-04-29] MEDS: Amiodarone 200 MG TAB PO SCH ×2 (09:13→21:26)
[2017-04-29] MEDS: Aspirin 325 MG TAB PO SCH (09:13)
[2017-04-29] MEDS: Famotidine 20 MG TAB PO SCH (09:13)
[2017-04-29] MEDS: Enoxaparin Sodium 80 MG/0.8 ML SYRINGE SC SCH ×2 (09:14→21:28)
[2017-04-29] MEDS: Insulin Detemir 100 UNITS/ML 15 UNITS in Pre-Filled Syringe 1 EACH SC SCH ×2 (09:15→22:22)
[2017-04-29] MEDS: Nicotine 14 MG PATCH TD SCH (12:23)
--- NOTE | 2017-04-29 13:12 | PRG ---
DATE OF SERVICE: 04/29/2017. SUBJECTIVE: Patient is in better spirits today. The palliative care folks have met with the family in her setting of hospice for home. OBJECTIVE: VITAL SIGNS: Temperature 98.9, pulse 59, respirations 19, O2 saturation 97%, blood pressure 127/65. HEENT: Unremarkable. NECK: No adenopathy or JVD. LUNGS: Clear. CARDIAC: S1 and S2 regular. ABDOMEN: Soft. EXTREMITIES: No edema. LABORATORY DATA: No new labs were obtained today. ASSESSMENT: 1. Metastatic lung cancer to the liver. 2. Large mediastinal mass which is likely from the lung cancer. PLAN: The family has decided not to go with the biopsy instead undertake palliative care, which I th ink is smart given the patient's severe underlying dementia. No further recommendations from our sta ndpoint, we will sign off. Please recall if further assistance needed.
--- NOTE | 2017-04-29 14:45 | PDOC.PN ---
- Subjective Encounter Start Date: 04/29/17 Encounter Start Time: 10:40 Pt seen for followup re: lung mass. Denies chest pain or shortness of breath. - Objective Resuscitation Status: Resuscitation Status DNR:Do Not Resuscitate MAR Reviewed: Yes Vital Signs & Weight: Vital Signs (12 hours) Temp Pulse Resp BP Pulse Ox 04/29/17 12:10 98.9 F 59 L 19 127/65 97 04/29/17 08:11 98.6 F 61 20 94 L 04/29/17 08:00 98.5 F 63 18 133/73 99 04/29/17 04:52 98.6 F 61 20 126/64 97 Weight Weight 164 lb 11.2 oz I&O: 04/28/17 04/29/17 04/30/17 06:59 06:59 06:59 Intake Total 3171 3214 Output Total 1300 1600 Balance 1871 1614 Result Diagrams: 04/27/17 04:25 04/27/17 04:25 Additional Labs: Accuchecks 04/29/17 04/29/17 04/28/17 11:47 05:05 20:41 POC Glucose 180 H 134 H 161 H 04/28/17 04/28/17 17:01 11:19 POC Glucose 88 77 EKG Reviewed by me: Yes (Tele: NSR) Phys Exam - Physical Examination Constitutional: NAD HEENT: moist MMs Neck: supple Respiratory: clear to auscultation bilateral Cardiovascular: RRR Gastrointestinal: soft Neurological: moves all 4 limbs Psychiatric: normal affect Skin: no rash Dx/Plan (1) Lung mass Code(s): R91.8 - OTHER NONSPECIFIC ABNORMAL FINDING OF LUNG FIELD Status: Acute (2) Liver metastases Code(s): C78.7 - SECONDARY MALIG NEOPLASM OF LIVER AND INTRAHEPATIC BILE DUCT Status: Acute (3) Coronary artery disease Code(s): I25.10 - ATHSCL HEART DISEASE OF [place] CORONARY ARTERY W/O ANG PCTRS Status: Chronic Qualifiers: Associated angina: with unstable angina Comment: s/p CABG (4) Diabetes type 2, uncontrolled Code(s): E11.65 - TYPE 2 DIABETES MELLITUS WITH HYPERGLYCEMIA Status: Chronic (5) Dyslipidemia Code(s): E78.5 - HYPERLIPIDEMIA, UNSPECIFIED Status: Chronic (6) Hypertension Code(s): I10 - ESSENTIAL (PRIMARY) HYPERTENSION Status: Chronic Qualifiers: Hypertension type: essential hypertension Qualified Code(s): I10 - Essential (primary) hypertension (7) Tobacco abuse Code(s): Z72.0 - TOBACCO USE Status: Chronic (8) Atrial fibrillation with RVR Code(s): I48.91 - UNSPECIFIED ATRIAL FIBRILLATION Status: Resolved - Plan plan discussed w/ family, out of bed/ambulate * . Palliative care discussing re: hospice care. Will await outcome of discussions. Will continue antibiotics for now. Review of Systems - Review of Systems Respiratory: negative: Cough, Dry, Shortness of Breath, Hemoptysis, SOB with Excertion, Pleuritic Pain, Sputum, Wheezing Cardiovascular: negative: chest pain, palpitations, orthopnea, paroxysmal nocturnal dyspnea, edema, light headedness - Medications/Allergies Allergies/Adverse Reactions: Allergies Allergy/AdvReac Type Severity Reaction Status Date / Time codeine Allergy Mild Rash Verified 03/05/17 08:23 [From Tylenol-Codeine #3] hydrocodone Allergy confused, Verified 03/05/17 08:25 disoriented Medications: Current Medications Acetaminophen (Tylenol) 1,000 mg PO Q6H PRN PRN Reason: Headache/Fever or Mild Pain Amiodarone HCl (Cordarone) 400 mg PO BID [facility] Last Admin: 04/29/17 09:13 Dose: 400 mg Aspirin (Aspirin) 325 mg PO DAILY [facility] Last Admin: 04/29/17 09:13 Dose: 325 mg Buspirone HCl (Buspar) 10 mg PO TID [facility] Last Admin: 04/29/17 09:13 Dose: 10 mg Clonazepam (Klonopin) 0.5 mg PO HS [facility] Last Admin: 04/28/17 21:47 Dose: 0.5 mg Dextrose/Water (Dextrose 50%) 25 gm SLOW IVP PRN PRN PRN Reason: Hypoglycemia Docusate Sodium (Colace) 100 mg PO BID [facility] Last Admin: 04/29/17 09:13 Dose: 100 mg Enoxaparin Sodium (Lovenox) 70 mg SC 0900,2100 [facility] Last Admin: 04/29/17 09:14 Dose: 70 mg Famotidine (Pepcid) 20 mg PO DAILY [facility] Last Admin: 04/29/17 09:13 Dose: 20 mg Gabapentin (Neurontin) 600 mg PO QID [facility] Last Admin: 04/29/17 12:22 Dose: 600 mg Glucagon (Glucagon) 1 mg IM PRN PRN PRN Reason: Hypoglycemia Dextrose/Water (D5w) 1,000 mls @ 0 mls/hr IV .Q0M PRN; As Directed PRN Reason: Hypoglycemia Sodium Chloride (Normal Saline 0.9%) 1,000 mls @ 100 mls/hr IV .Q10H [facility] Last Admin: 04/29/17 04:36 Dose: 1,000 mls Piperacillin Sod/Tazobactam (Sod 3.375 gm/ Sodium Chloride) 100 mls @ 200 mls/ hr IVPB 0500,1100,1700,2300 [facility] Last Admin: 04/29/17 12:21 Dose: 100 mls Insulin Detemir 15 units/ (Miscellaneous Medication) 0.15 mls @ 0 mls/hr SC BID [facility] Last Admin: 04/29/17 09:15 Dose: Not Given Vancomycin HCl 1 gm/ Device 200 mls @ 200 mls/hr IVPB 0100,1300 [facility] Last Admin: 04/29/17 12:22 Dose: 200 mls Insulin Human Lispro (Humalog) 0 units SC .MODERATE SLIDING SC PRN PRN Reason: Moderate Correctional Scale Last Admin: 04/27/17 05:48 Dose: 4 unit Insulin Human Lispro (Humalog) 0 units SC .BEDTIME SLIDING SC PRN PRN Reason: Bedtime Correctional Scale Last Admin: 04/27/17 00:08 Dose: 4 unit Miscellaneous Medication (Pharmacy To Dose) 1 each IVPB PRN PRN PRN Reason: Pharmacy to dose Morphine Sulfate (Morphine) 2 mg SLOW IVP Q4H PRN PRN Reason: Pain Last Admin: 04/27/17 08:51 Dose: 2 mg Nicotine (Nicoderm Patch) 14 mg TD Q24HR [facility] Last Admin: 04/29/17 12:23 Dose: Not Given Ondansetron HCl (Zofran Odt) 4 mg PO Q6H PRN PRN Reason: Nausea/Vomiting Ondansetron HCl (Zofran) 4 mg IVP Q6H PRN PRN Reason: Nausea/Vomiting Senna (Senokot) 2 tab PO HSPRN PRN PRN Reason: Constipation Sodium Chloride (Flush - Normal Saline) 10 ml IVF Q12HR [facility] Last Admin: 04/29/17 09:15 Dose: Not Given Sodium Chloride (Flush - Normal Saline) 10 ml IVF PRN PRN PRN Reason: Saline Flush Tramadol HCl (Ultram) 25 mg PO QID [facility] Last Admin: 04/29/17 12:22 Dose: 25 mg
[2017-04-29] MEDS: Morphine 2 MG/ML SYRINGE SLOW IVP PRN (18:40)
[2017-04-29] MEDS: clonazePAM 0.5 MG TAB PO SCH (21:27)
[2017-04-30] MEDS: Vancomycin HCl 1 GM in Premix Bag 1 BAG IVPB SCH ×2 (01:07→13:19)
[2017-04-30] MEDS: Piperacillin/Tazobactam 3.375 GM in Sodium Chloride 0.9% 100 ML IVPB SCH ×2 (05:11→12:14)
[2017-04-30] MEDS: Morphine 2 MG/ML SYRINGE SLOW IVP PRN (05:28)
[2017-04-30] MEDS: Sodium Chloride 0.9% 1,000 ML IV SCH (07:04)
[2017-04-30] MEDS: busPIRone HCl 10 MG TAB PO SCH ×3 (09:59→20:19)
[2017-04-30] MEDS: Aspirin 325 MG TAB PO SCH (09:59)
[2017-04-30] MEDS: traMADol HCl 50 MG TAB PO SCH ×4 (10:00→21:34)
[2017-04-30] MEDS: Docusate 100 MG CAP PO SCH ×2 (10:00→20:20)
[2017-04-30] MEDS: Famotidine 20 MG TAB PO SCH (10:00)
[2017-04-30] MEDS: Gabapentin 300 MG CAP PO SCH ×4 (10:00→20:19)
[2017-04-30] MEDS: Amiodarone 200 MG TAB PO SCH ×2 (10:00→20:19)
[2017-04-30] MEDS: Insulin Detemir 100 UNITS/ML 15 UNITS in Pre-Filled Syringe 1 EACH SC SCH ×2 (10:07→20:20)
[2017-04-30] MEDS: Enoxaparin Sodium 80 MG/0.8 ML SYRINGE SC SCH (10:07)
[2017-04-30 13:12] LABS: Vancomycin, Trough 15.7 ug/mL
[2017-04-30] MEDS: Nicotine 14 MG PATCH TD SCH (13:20)
--- NOTE | 2017-04-30 13:33 | PDOC.PN ---
- Subjective Encounter Start Date: 04/30/17 Encounter Start Time: 08:40 Pt seen for followup re: lung mass. No complaints today. - Objective Resuscitation Status: Resuscitation Status DNR:Do Not Resuscitate MAR Reviewed: Yes Vital Signs & Weight: Vital Signs (12 hours) Temp Pulse Resp BP Pulse Ox Pulse Ox Pulse Ox 04/30/17 11:07 92 L 90 L 04/30/17 08:00 98.1 F 56 L 16 04/30/17 07:10 98.1 F 56 L 16 131/74 94 L 04/30/17 04:28 98.1 F 58 L 18 134/73 94 L Weight Weight 164 lb 11.2 oz I&O: 04/29/17 04/30/17 05/01/17 06:59 06:59 06:59 Intake Total 3214 560 Output Total 1600 700 Balance 1614 -140 Result Diagrams: 04/27/17 04:25 04/27/17 04:25 Additional Labs: Accuchecks 04/30/17 04/30/17 04/29/17 11:30 05:18 21:26 POC Glucose 192 H 152 H 189 H 04/29/17 17:00 POC Glucose 206 H Phys Exam - Physical Examination Constitutional: NAD HEENT: moist MMs Neck: supple Respiratory: clear to auscultation bilateral Cardiovascular: RRR Gastrointestinal: soft Neurological: moves all 4 limbs Psychiatric: normal affect Dx/Plan (1) Lung mass Code(s): R91.8 - OTHER NONSPECIFIC ABNORMAL FINDING OF LUNG FIELD Status: Acute (2) Liver metastases Code(s): C78.7 - SECONDARY MALIG NEOPLASM OF LIVER AND INTRAHEPATIC BILE DUCT Status: Acute (3) Coronary artery disease Code(s): I25.10 - ATHSCL HEART DISEASE OF [place] CORONARY ARTERY W/O ANG PCTRS Status: Chronic Qualifiers: Associated angina: with unstable angina Comment: s/p CABG (4) Diabetes type 2, uncontrolled Code(s): E11.65 - TYPE 2 DIABETES MELLITUS WITH HYPERGLYCEMIA Status: Chronic (5) Dyslipidemia Code(s): E78.5 - HYPERLIPIDEMIA, UNSPECIFIED Status: Chronic (6) Hypertension Code(s): I10 - ESSENTIAL (PRIMARY) HYPERTENSION Status: Chronic Qualifiers: Hypertension type: essential hypertension Qualified Code(s): I10 - Essential (primary) hypertension (7) Tobacco abuse Code(s): Z72.0 - TOBACCO USE Status: Chronic (8) Atrial fibrillation with RVR Code(s): I48.91 - UNSPECIFIED ATRIAL FIBRILLATION Status: Resolved - Plan plan discussed w/ family, continue antibiotics, out of bed/ambulate * . Switch to oral antibiotics. Switch anticoagulation to rivaroxaban. Likely discharge tomorrow for hospice care at home. Review of Systems - Review of Systems Respiratory: negative: Cough, Dry, Shortness of Breath, Hemoptysis, SOB with Excertion, Pleuritic Pain, Sputum, Wheezing Cardiovascular: negative: chest pain, palpitations, orthopnea, paroxysmal nocturnal dyspnea, edema, light headedness - Medications/Allergies Allergies/Adverse Reactions: Allergies Allergy/AdvReac Type Severity Reaction Status Date / Time codeine Allergy Mild Rash Verified 03/05/17 08:23 [From Tylenol-Codeine #3] hydrocodone Allergy confused, Verified 03/05/17 08:25 disoriented Medications: Current Medications Acetaminophen (Tylenol) 1,000 mg PO Q6H PRN PRN Reason: Headache/Fever or Mild Pain Amiodarone HCl (Cordarone) 400 mg PO BID [facility] Last Admin: 04/30/17 10:00 Dose: 400 mg Aspirin (Aspirin) 325 mg PO DAILY [facility] Last Admin: 04/30/17 09:59 Dose: 325 mg Buspirone HCl (Buspar) 10 mg PO TID [facility] Last Admin: 04/30/17 09:59 Dose: 10 mg Clonazepam (Klonopin) 0.5 mg PO HS [facility] Last Admin: 04/29/17 21:27 Dose: 0.5 mg Dextrose/Water (Dextrose 50%) 25 gm SLOW IVP PRN PRN PRN Reason: Hypoglycemia Docusate Sodium (Colace) 100 mg PO BID [facility] Last Admin: 04/30/17 10:00 Dose: 100 mg Enoxaparin Sodium (Lovenox) 70 mg SC 0900,2100 [facility] Last Admin: 04/30/17 10:07 Dose: 70 mg Famotidine (Pepcid) 20 mg PO DAILY [facility] Last Admin: 04/30/17 10:00 Dose: 20 mg Gabapentin (Neurontin) 600 mg PO QID [facility] Last Admin: 04/30/17 12:24 Dose: 600 mg Glucagon (Glucagon) 1 mg IM PRN PRN PRN Reason: Hypoglycemia Dextrose/Water (D5w) 1,000 mls @ 0 mls/hr IV .Q0M PRN; As Directed PRN Reason: Hypoglycemia Piperacillin Sod/Tazobactam (Sod 3.375 gm/ Sodium Chloride) 100 mls @ 200 mls/ hr IVPB 0500,1100,1700,2300 [facility] Last Admin: 04/30/17 12:14 Dose: 100 mls Insulin Detemir 15 units/ (Miscellaneous Medication) 0.15 mls @ 0 mls/hr SC BID [facility] Last Admin: 04/30/17 10:07 Dose: Not Given Vancomycin HCl 1 gm/ Device 200 mls @ 200 mls/hr IVPB 0100,1300 [facility] Last Admin: 04/30/17 13:19 Dose: 200 mls Insulin Human Lispro (Humalog) 0 units SC .MODERATE SLIDING SC PRN PRN Reason: Moderate Correctional Scale Last Admin: 04/27/17 05:48 Dose: 4 unit Insulin Human Lispro (Humalog) 0 units SC .BEDTIME SLIDING SC PRN PRN Reason: Bedtime Correctional Scale Last Admin: 04/27/17 00:08 Dose: 4 unit Miscellaneous Medication (Pharmacy To Dose) 1 each IVPB PRN PRN PRN Reason: Pharmacy to dose Morphine Sulfate (Morphine) 2 mg SLOW IVP Q4H PRN PRN Reason: Pain Last Admin: 04/30/17 05:28 Dose: 2 mg Nicotine (Nicoderm Patch) 14 mg TD Q24HR [facility] Last Admin: 04/30/17 13:20 Dose: Not Given Ondansetron HCl (Zofran Odt) 4 mg PO Q6H PRN PRN Reason: Nausea/Vomiting Ondansetron HCl (Zofran) 4 mg IVP Q6H PRN PRN Reason: Nausea/Vomiting Senna (Senokot) 2 tab PO HSPRN PRN PRN Reason: Constipation Sodium Chloride (Flush - Normal Saline) 10 ml IVF Q12HR [facility] Last Admin: 04/30/17 10:08 Dose: 10 ml Sodium Chloride (Flush - Normal Saline) 10 ml IVF PRN PRN PRN Reason: Saline Flush Tramadol HCl (Ultram) 25 mg PO QID [facility] Last Admin: 04/30/17 12:24 Dose: 25 mg
--- NOTE | 2017-04-30 20:03 | PDOC.CTH ---
<GabinoNena - Last Filed: 04/30/17 19:59> Cardiology Progress Note - Subjective The pt seen and examined. No overnight events. No cardiac complaints. He is confused; Unable to obtain ROS - Objective Vital Signs Temp Pulse Resp Pulse Ox Pulse Ox 04/30/17 11:07 92 L 90 L 04/30/17 08:00 98.1 F 56 L 16 Weight 164 lb 11.2 oz 04/29/17 04/30/17 05/01/17 06:59 06:59 06:59 Intake Total 3214 560 Output Total 1600 700 800 Balance 1614 -140 -800 - Physical Examination Lungs: other: (diminished at bases) Heart: RRR Abdomen: soft Extremities: other: (No edemas) - Labs Result Diagrams: 04/27/17 04:25 04/27/17 04:25 Troponin/CKMB CK-MB (CK-2) 1.0 ng/mL (0-6.6) 04/26/17 Unknown Troponin I 0.020 ng/mL (< 0.028) 04/26/17 Unknown - Assessment/Plan 1. Metastatic Lung Cancer to Liver - D/c home with hospice 2. CAD with hx of CABG - stable; on ASA, but no BBlocker due to Bradycardia; cont. monitor 3. Paroxysmal Afib - Latest Tele record showed SR with Amiodarone and Xarelto; cont. monitor 4. HTN - stable with current medication 5. DM type 2 - managed by PCP MAR reviewed * possible D/c tomorrow for hospice care at home. Review of Systems - Review of Systems Constitutional: reports: see HPI EENTM: reports: see HPI Respiratory: reports: see HPI Cardiac (ROS): reports: see HPI ABD/GI: reports: see HPI : reports: see HPI Musculoskeletal: reports: see HPI <Rivas Ribeiro - Last Filed: 04/30/17 22:29> Cardiology Progress Note - Objective Vital Signs Pulse Ox Pulse Ox 04/30/17 11:07 92 L 90 L Weight 164 lb 11.2 oz 04/29/17 04/30/17 05/01/17 06:59 06:59 06:59 Intake Total 3214 560 Output Total 1600 700 800 Balance 1614 140 -800 - Labs Result Diagrams: 04/27/17 04:25 04/27/17 04:25 Troponin/CKMB CK-MB (CK-2) 1.0 ng/mL (0-6.6) 04/26/17 Unknown Troponin I 0.020 ng/mL (< 0.028) 04/26/17 Unknown - Assessment/Plan Pt. seen and eval. by me.I agree with the A/P by the [employer].
[2017-04-30] MEDS: clonazePAM 0.5 MG TAB PO SCH (20:19)
[2017-04-30] MEDS: Cefdinir 300 MG CAP PO SCH (20:20)
[2017-04-30] MEDS: Doxycycline 100 MG CAP PO SCH (20:20)
[2017-04-30] MEDS ORDERED: Rivaroxaban 10 MG TAB PO SCH (21:00)
[2017-05-01] MEDS: Vancomycin HCl 1 GM in Premix Bag 1 BAG IVPB SCH ×2 (00:26→13:10)
[2017-05-01 08:15] VITALS: BP 128/78; TEMP 98.9
--- NOTE | 2017-05-01 09:22 | PDOC.CTH ---
Cardiology Progress Note - Subjective The pt seen and examined. No overnight events. No cardiac complaints. He is confused; Unable to obtain ROS - Objective Vital Signs Temp Pulse Resp BP Pulse Ox 05/01/17 07:14 98.9 F 68 16 128/78 93 L Weight 164 lb 11.2 oz 04/30/17 05/01/17 05/02/17 06:59 06:59 06:59 Intake Total 560 200 Output Total 700 1350 Balance -140 -1150 - Physical Examination Neck: no JVD present Lungs: other: (diminished at bases) Heart: RRR Abdomen: soft Extremities: other: (No edema) - Labs Result Diagrams: 04/27/17 04:25 04/27/17 04:25 Troponin/CKMB CK-MB (CK-2) 1.0 ng/mL (0-6.6) 04/26/17 Unknown Troponin I 0.020 ng/mL (< 0.028) 04/26/17 Unknown - Assessment/Plan 1. Metastatic Lung Cancer to Liver - stable with RA at this moment; D/c home with hospice 2. CAD with hx of CABG - stable; on ASA, but no BBlocker due to Bradycardia; cont. monitor 3. Paroxysmal Afib - Latest Tele record showed SR with Amiodarone and Xarelto; cont. monitor 4. HTN - stable with current medication 5. DM type 2 - managed by PCP MAR reviewed * possible D/c today for hospice care at home. Review of Systems - Review of Systems Constitutional: reports: see HPI EENTM: reports: see HPI Respiratory: reports: see HPI Cardiac (ROS): reports: see HPI ABD/GI: reports: see HPI : reports: see HPI
[2017-05-01] MEDS: Cefdinir 300 MG CAP PO SCH (09:58)
[2017-05-01] MEDS: Famotidine 20 MG TAB PO SCH (09:59)
[2017-05-01] MEDS: traMADol HCl 50 MG TAB PO SCH ×3 (09:59→17:27)
[2017-05-01] MEDS: Aspirin 325 MG TAB PO SCH (09:59)
[2017-05-01] MEDS: Amiodarone 200 MG TAB PO SCH (09:59)
[2017-05-01] MEDS: busPIRone HCl 10 MG TAB PO SCH ×2 (09:59→14:19)
[2017-05-01] MEDS: Gabapentin 300 MG CAP PO SCH ×3 (09:59→17:27)
[2017-05-01] MEDS: Doxycycline 100 MG CAP PO SCH (10:00)
[2017-05-01] MEDS: Docusate 100 MG CAP PO SCH (10:00)
[2017-05-01] MEDS: Insulin Detemir 100 UNITS/ML 15 UNITS in Pre-Filled Syringe 1 EACH SC SCH (10:05)
[2017-05-01] MEDS: Nicotine 14 MG PATCH TD SCH (13:06)
[2017-05-01] MEDS: Morphine 2 MG/ML SYRINGE SLOW IVP PRN (13:09)
--- NOTE | 2017-05-01 23:59 | DIS ---
PRIMARY CARE PROVIDER: Heaven Britton DATE OF ADMISSION: 04/26/2017 DATE OF DISCHARGE: 05/01/2017 DISCHARGE DIAGNOSES: 1. Lung mass. 2. Liver metastases. 3. Paroxysmal atrial fibrillation with rapid ventricular response. 4. Urinary tract infection with Staphylococcus epidermidis. 5. Sepsis. CONDITION OF PATIENT ON THE DAY OF DISCHARGE: Stable. I assessed Mr. Salazar on the day of discharge. He is nonverbal. The vital signs are stable. S1 and S2 are heard, regular. Lungs are clear to au scultation bilaterally. DISCHARGE MEDICATIONS: Amiodarone 400 mg 2 times a day for 2 weeks, then 200 mg daily, aspirin 81 mg daily, atorvastatin 80 mg at bedtime, bupropion 150 mg 2 times a day, Buspirone 10 mg 3 times a day, cefdinir 300 mg 2 times a day for 5 days, clonazepam 0.5 mg at bedtime, vitamin B12 of 1000 mcg karina y, Pepcid 20 mg 3 times a day, Lidex 0.05% cream p.r.n., folic acid 0.4 mg daily, Lasix 20 mg daily, gabapentin 600 mg 3 times a day, NovoLog insulin by sliding scale, Levemir insulin 15 units 2 times a day, methocarbamol 500 mg 4 times a day, rivaroxaban 20 mg daily, tramadol 25 mg 4 times a day as ne eded. INVESTIGATIONS DURING THIS HOSPITALIZATION: 1. Chest x-ray on 04/26/2017, which showed right suprahilar mass with mediastinal lymphadenopathy. CT scan of the chest on 04/26/2017, which showed right upper lobe mass into the mediastinum measuring 4.3 x 4.3 x 10 cm. He also had invasion to the right upper lobe anterior and posterior segmental br onchi as well as right middle lobe bronchus with a post-obstructive pneumonitis and possibly some lym phangitic spread of tumor. He also had extensive heterogenous appearance of the noncontrast enhanced liver. 2. Abdominal ultrasound on 04/26/2017, which showed enlarged heterogeneous liver with episodes of mu ltiple small heterogenous masses. 3. CT scan of the abdomen and pelvis on 04/26/2017, which showed very heterogenous appearance to the liver which was felt to represent diffuse metastatic disease and bibasilar atelectasis with right pl eural effusion. CONSULTATIONS DURING THIS HOSPITALIZATION: Cardiology, Dr. Brennan and Pulmonology, Dr. Elizondo. HOSPITAL COURSE: Mr. Salazar is a pleasant 72-year-old gentleman who was admitted to [facility] on 04/26/2017 for sepsis as well as a lung mass with liver mets. He was seen by Car diology and Pulmonology Services. He was started on amiodarone and converted to normal sinus rhythm. After a lengthy discussion with the pulmonology service, the patient and family decided not to purs ue any aggressive measures including biopsy of the mass. He was seen by Palliative Care Service. He is being discharged home with hospice care. Many thanks for allowing me to participate in your patient's care. Please feel free to contact me wi th any questions or concerns. On 04/27, he had total bilirubin 0.6, AST 72, ALT 120 and alkaline lynda sphatase 199. Albumin was 3.2. Lipase was 399. Sodium and potassium were normal. Creatinine was n ormal at 1.19. On 04/27, he had a white count of 4300, hemoglobin 10.7 and platelet count 103,000. DISCHARGE DESTINATION: Home with hospice care. TOTAL AMOUNT OF TIME SPENT COORDINATING THIS DISCHARGE: 38 minutes.
[2017-05-02] MEDS ORDERED: Aspirin 81 mg Enteric Coated Tablet PO SCH (09:00)
== END 2017-05-01 18:37 | disposition hospice, home (50) | DRG 205 ==
LOC: ERS 12:14 → IMCU/EMU 19:00 → T4-A 04-29 22:45
PROVIDERS: ADMIT Family Medicine; ATTEND Family Medicine
DX: J98.4 Other disorders of lung (principal); A41.9 Sepsis, unspecified organism; N17.9 Acute kidney failure, unspecified; C78.7 Secondary malignant neoplasm of liver and intrahepatic bile duct; E87.2 Acidosis; E11.22 Type 2 diabetes mellitus with diabetic chronic kidney disease; E11.51 Type 2 diabetes mellitus with diabetic peripheral angiopathy without gangrene; E83.52 Hypercalcemia; I48.92 Unspecified atrial flutter; N39.0 Urinary tract infection, site not specified; I25.110 Atherosclerotic heart disease of native coronary artery with unstable angina pectoris; I48.0 Paroxysmal atrial fibrillation; Z66 Do not resuscitate; C80.1 Malignant (primary) neoplasm, unspecified; Z51.5 Encounter for palliative care; I12.9 Hypertensive chronic kidney disease with stage 1 through stage 4 chronic kidney disease, or unspecified chronic kidney disease; N18.2 Chronic kidney disease, stage 2 (mild); F03.90 Unspecified dementia, unspecified severity, without behavioral disturbance, psychotic disturbance, mood disturbance, and anxiety; F17.210 Nicotine dependence, cigarettes, uncomplicated; Z95.1 Presence of aortocoronary bypass graft; B95.7 Other staphylococcus as the cause of diseases classified elsewhere; Z79.4 Long term (current) use of insulin; F32.9 Major depressive disorder, single episode, unspecified; I25.2 Old myocardial infarction
CPT/HCPCS: 36415; 36416; 51701; 70450; 71010; 71250; 74176; 76705; 80053; 80202; 81003; 81015; 82553; 83605; 83690; 83880; 84484; 85007; 85025; 85027; 85610; 85730; 87040; 87077; 87086; 87149; 87186; 93005; 96361; 96365; 96375; A4216; G8978-GP-CM; G8979-GP-CK; J1650; J1815; J2270; J2405; J2543; J3010; J3370; J7050